=== PATIENT | female | born 1945 | race Caucasian/White ===

== ENCOUNTER 2017-06-25 13:20 | Emergency (ER) | payer MEDICARE, OTHER ==
[2017-06-25 13:35] VITALS: BP 133/58
--- NOTE | 2017-06-25 14:26 | UC ---
Hand/Wrist HPI - HPI Summary HPI Summary: complaint of middle right finger pain playing pool with her grandson and she jammed her finger 3 weeks ago was bruised and seemed to be getting better but it is still painful hurts to bend her finger not taking medication for pain - History Of Current Complaint Chief Complaint: UCUpperExtremity Stated Complaint: HAND PAIN Time Seen by Provider: 06/25/17 14:20 Hx Obtained From: Patient - Allergies/Home Medications Allergies/Adverse Reactions: Allergies Allergy/AdvReac Type Severity Reaction Status Date / Time Levofloxacin [From Levaquin] Allergy Rash Verified 06/25/17 13:35 Penicillins Allergy Rash Verified 06/25/17 13:35 Sulfa Antibiotics Allergy Rash And Verified 06/25/17 13:35 Itching PMH/Surg Hx/FS Hx/Imm Hx Previously Healthy: Yes Endocrine History: Diabetes, Dyslipidemia Cardiovascular History: Hypertension Respiratory History: Asthma - Surgical History Surgical History: Yes Surgery Procedure, Year, and Place: 12/2011 LT BIG TOE - [facility]; CARPAL TUNNEL SX BOTH WRIST, Right breast lumpectomy-2006. bunion 01/13/15 - Family History Known Family History: Positive: Hypertension, Diabetes Negative: Cardiac Disease - Social History Occupation: Retired Lives: With Family Alcohol Use: None Substance Use Type: None Smoking Status (MU): Never Smoked Tobacco Review of Systems Constitutional: Negative Skin: Negative Eyes: Negative ENT: Negative Respiratory: Negative Cardiovascular: Negative Gastrointestinal: Negative Genitourinary: Negative Motor: Negative Neurovascular: Negative Musculoskeletal: Other: - right middle finger pain Neurological: Negative Psychological: Negative All Other Systems Reviewed And Are Negative: Yes Physical Exam Triage Information Reviewed: Yes Appearance: No Pain Distress, Well-Nourished Vital Signs: Initial Vital Signs Temp 97.2 F 06/25/17 13:31 Pulse 72 06/25/17 13:31 Resp 18 06/25/17 13:31 BP 133/58 06/25/17 13:31 Pulse Ox 97 06/25/17 13:31 Vital Signs Reviewed: Yes Eyes: Positive: Conjunctiva Clear ENT: Positive: Pharynx normal, TMs normal Respiratory: Positive: Lungs clear, Normal breath sounds, No respiratory distress, No accessory muscle use Cardiovascular: Positive: RRR, No Murmur, Pulses Normal Musculoskeletal: Positive: Other: - RUE- tenderness in PIP joint- full ROM Neurological: Positive: Alert Psychological Exam: Normal Skin Exam: Normal Hand/Wrist Course/Dx - Differential Dx/Diagnosis Differential Diagnosis/HQI/PQRI: Contusion, Fracture, Sprain, Strain Provider Diagnoses: right middle finger contusion Discharge - Discharge Plan Condition: Stable Disposition: HOME Patient Education Materials: Dion Cole (ED) Referrals: María Shafer MD [Primary Care Provider] - Additional Instructions: Increase fluids and rest Take acetaminophen or ibuprofen for fever or pain Please review your discharge instructions. If your symptoms do not improve please call your primary care provider or return to urgent care.
--- NOTE | 2017-06-25 15:02 | RAD ---
INDICATION: Right third digit injury COMPARISON: None TECHNIQUE: AP, lateral, and oblique views were obtained. FINDINGS: There are no acute bony findings. 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 The soft tissues are intact. IMPRESSION: NO ACUTE BONY FINDINGS.
== END 2017-06-25 15:15 | disposition home or self-care (01) ==
LOC: UCEAST 13:20
DX: S60.031A Contusion of right middle finger without damage to nail, initial encounter (principal); X58.XXXA Exposure to other specified factors, initial encounter; E11.9 Type 2 diabetes mellitus without complications; E78.5 Hyperlipidemia, unspecified; I10 Essential (primary) hypertension; J45.909 Unspecified asthma, uncomplicated; Z88.3 Allergy status to other anti-infective agents; Z88.0 Allergy status to penicillin; Z88.2 Allergy status to sulfonamides
CPT/HCPCS: 73140; 99211; G0463

== ENCOUNTER 2018-04-06 15:46 | Emergency (ER) | payer MEDICARE, OTHER ==
[2018-04-06 17:18] LABS: ABS Basophils 0.1 10^3/ul (0-0.2); ABS Eosinophils 0.1 10^3/ul (0-0.6); ABS Lymphocytes 2.8 10^3/ul (1.0-4.8); ABS Neutrophils 9.9 10^3/ul (1.5-7.7); ABS Nucleated RBC 0 10^3/ul; Eosinophil % 1.1 % (0-6); Hematocrit 43 % (35-47); Hemoglobin 14.5 g/dl (12.0-16.0); Mean Corpuscular HGB Conc 34 g/dl (31-36); Mean Corpuscular Hemoglobin 32 pg (27-31); Mean Corpuscular Volume 94 fL (80-97); Nucleated Red Blood Cells % 0; Platelet Count 289 10^3/ul (150-450); Red Blood Count 4.54 10^6/ul (4.0-5.4); Red Cell Distribution Width 14 % (10.5-15); White Blood Count 13.9 10^3/ul (3.5-10.8)
[2018-04-06 17:24] LABS: INR 0.92 (0.77-1.02)
[2018-04-06 17:39] LABS: EGFR Non-African American 79.6 (>60)
[2018-04-06] MEDS ORDERED: Iodixanol* (CONTRAST) 320 MG/ML 100 ML SDV IV ONE (18:15)
--- NOTE | 2018-04-06 18:41 | RAD ---
HISTORY: Chest pain COMPARISONS: None TECHNIQUE: Multiple contiguous axial CT scans of the chest were obtained after the administration of nonionic intravenous contrast, timed to the pulmonary arterial phase of contrast enhancement.. Coronal and sagittal multiplanar reformations are also submitted for review. FINDINGS: NECK AND THYROID: The lower neck and thyroid are unremarkable. CHEST WALL: There is no lower cervical, axillary, or supraclavicular lymphadenopathy by size criteria. HEART AND PERICARDIUM: The heart is unremarkable. AORTA AND PULMONARY VASCULATURE: There is no pulmonary arterial filling defect to suggest pulmonary embolism. There is no linear filling defect within the aorta to suggest aortic dissection. MEDIASTINUM: There is no mediastinal lymphadenopathy by size criteria. DALIA: There is no hilar lymphadenopathy by size criteria. AIRWAY AND ESOPHAGUS: The airway is unremarkable, without endobronchial filling defect. The esophagus is grossly normal. LUNG PARENCHYMA: The lung volumes are low. The lung parenchyma is clear for the phase of respiration. PLEURA: No pleural abnormalities are noted. UPPER ABDOMEN: The upper abdomen is unremarkable. BONES AND SOFT TISSUES: Degenerative changes are noted OTHER: None. IMPRESSION: NO PULMONARY ARTERIAL FILLING DEFECT TO SUGGEST PULMONARY EMBOLISM.
--- NOTE | 2018-04-06 20:58 | ED ---
Tico Li Elizabeth, scribed for Sam Belle MD on 04/06/18 at 1645 . HPI Chest Pain - HPI Summary HPI Summary: This patient is a 73 year old F presenting to [facility] upon referral from a walk- in clinic with a chief complaint of sharp, intermittent chest pain since 6 days ago. The patient reports that the pain is located in her upper middle back. The patient notes that the pain has worsened today. The patient notes the pain is now chest heaviness. The patient rates the pain 0/10 in severity. Symptoms aggravated by nothing. Symptoms alleviated by lying down. Patient reports numbness in her pinkie finger, difficulty swallowing. Patient denies anterior chest pain and side pain. The patient has previously been diagnosed with a heart murmur. The patient reports taking 3 antacid pills earlier today. The patient is currently taking a low-dose antibiotic due to hx of UTIs. The patient reports using her inhaler this morning. - History of Current Complaint Chief Complaint: EDChestPainROMI Time Seen by Provider: 04/06/18 16:19 Hx Obtained From: Patient Onset/Duration: Started Days Ago - 7 days ago, Still Present Timing: Intermittent Initial Severity: Mild Current Severity: Mild Pain Intensity: 0 Pain Scale Used: 0-10 Numeric Chest Pain Location: Discrete at: - mid upper back Chest Pain Radiates To:: Back, Shoulder Character: Heaviness, Sharp/Stabbing Aggravating Factor(s): Nothing Alleviating Factor(s): Position - lying down Associated Signs and Symptoms: Positive: Numbness - in her pinkie, Back Pain - mid-upper back pain, Other: - difficulty swallowing. Negative: Chest Pain - negative anterior chest pain - Allergy/Home Medications Allergies/Adverse Reactions: Allergies Allergy/AdvReac Type Severity Reaction Status Date / Time levofloxacin [From Levaquin] Allergy Rash Verified 04/06/18 15:48 Penicillins Allergy Rash Verified 04/06/18 15:48 Sulfa (Sulfonamide Allergy Rash And Verified 04/06/18 15:48 Antibiotics) Itching PMH/Surg Hx/FS Hx/Imm Hx Endocrine/Hematology History: Reports: Hx Diabetes Denies: Hx Thyroid Disease Cardiovascular History: Reports: Hx Hypertension, Other Cardiovascular Problems/ Disorders - heart murmur Denies: Hx Pacemaker/ICD Respiratory History: Reports: Hx Asthma Denies: Hx Chronic Obstructive Pulmonary Disease (COPD) GI History: Denies: Hx Ulcer History: Denies: Hx Renal Disease Comment Only: Other Problems/Disorders - Frequent UTI since 2009 Musculoskeletal History: Denies: Hx Rheumatoid Arthritis, Hx Osteoporosis Sensory History: Denies: Hx Hearing Aid Psychiatric History: Denies: Hx Panic Disorder - Cancer History Cancer Type, Location and Year: BreastCancer 2007 Hx Chemotherapy: No Hx Radiation Therapy: Yes - Surgical History Surgery Procedure, Year, and Place: CARPAL TUNNEL SX BOTH WRIST, Right breast lumpectomy-2006. 2X LEFT/2X RIGHT FOOT SURGERY Infectious Disease History: No Infectious Disease History: Denies: Hx Clostridium Difficile, Hx Hepatitis, Hx Human Immunodeficiency Virus (HIV), Hx of Known/Suspected MRSA, Hx Shingles, Hx Tuberculosis, Traveled Outside the [place] in Last 30 Days - Family History Known Family History: Positive: Hypertension, Diabetes Negative: Cardiac Disease - Social History Alcohol Use: None Substance Use Type: Reports: None Hx Tobacco Use: No Smoking Status (MU): Never Smoked Tobacco Review of Systems Positive: Other - difficulty swallowing Positive: Chest Pain - positive mid-upper back pain, negative anterior sternal chest pain Negative: Abdominal Pain Positive: Numbness - in her pinkie All Other Systems Reviewed And Are Negative: Yes Physical Exam - Summary Physical Exam Summary: Appearance: The patient is well-nourished in no acute distress and in no acute pain. Skin: The skin is warm and dry and skin color reflects adequate perfusion. HEENT: The head is normocephalic and atraumatic. The pupils are equal and reactive. The conjunctivae are clear and without drainage. Nares are patent and without drainage. Mouth reveals moist mucous membranes and the throat is without erythema and exudate. The external ears are intact. The ear canals are patent and without drainage. The tympanic membranes are intact. Neck: the neck is supple with full range of motion and non-tender. There are no carotid bruits. There is no neck vein distension. Respiratory: Chest is non-tender. Lungs are clear to auscultation and breath sounds are symmetrical and equal. Cardiovascular: Heart is regular rate and rhythm. There is a systolic ejection murmur auscultated. There is no rub auscultated. There is no peripheral edema and pulses are symmetrical and equal. Abdomen: The abdomen is soft and non-tender. There are normal bowel sounds heard in all four quadrants and there is no organomegaly palpated. Musculoskeletal: There is no back tenderness noted. Extremities are non-tender with full range of motion. There is good capillary refill. There is no peripheral edema or calf tenderness elicited. Neurological: Patient is alert and oriented to person, place and time. The patient has symmetrical motor strength in all four extremities. Cranial nerves are grossly intact. Deep tendon reflexes are symmetrical and equal in all four extremities. Psychiatric: The patient has an appropriate affect and does not exhibit any anxiety or depression. Triage Information Reviewed: Yes Vital Signs On Initial Exam: Initial Vitals Temp Pulse Resp BP Pulse Ox 96.9 F 72 16 133/100 95 04/06/18 15:50 04/06/18 15:50 04/06/18 15:50 04/06/18 15:50 04/06/18 15:50 Vital Signs Reviewed: Yes Diagnostics - Vital Signs Vital Signs Temp Pulse Resp BP Pulse Ox 04/06/18 15:50 96.9 F 72 16 133/100 95 - Laboratory Lab Results: Lab Results 04/06/18 04/06/18 04/06/18 Range/Units 17:12 17:13 17:13 WBC 13.9 H (3.5-10.8) 10^3/ul RBC 4.54 (4.0-5.4) 10^6/ul Hgb 14.5 (12.0-16.0) g/dl Hct 43 (35-47) % MCV 94 (80-97) fL MCH 32 H (27-31) pg MCHC 34 (31-36) g/dl RDW 14 (10.5-15) % Plt Count 289 (150-450) 10^3/ul MPV 8.0 (7.4-10.4) um3 Neut % (Auto) 71.3 (38-83) % Lymph % (Auto) 20.0 L (25-47) % Ogle % (Auto) 7.0 (0-7) % Eos % (Auto) 1.1 (0-6) % Baso % (Auto) 0.6 (0-2) % Absolute Neuts (auto) 9.9 H (1.5-7.7) 10^3/ul Absolute Lymphs (auto) 2.8 (1.0-4.8) 10^3/ul Absolute Monos (auto) 1.0 H (0-0.8) 10^3/ul Absolute Eos (auto) 0.1 (0-0.6) 10^3/ul Absolute Basos (auto) 0.1 (0-0.2) 10^3/ul Absolute Nucleated RBC 0 10^3/ul Nucleated RBC % 0 INR (Anticoag Therapy) 0.92 (0.77-1.02) Sodium 137 L (139-145) mmol/L Potassium 4.3 (3.5-5.0) mmol/L Chloride 103 (101-111) mmol/L Carbon Dioxide 26 (22-32) mmol/L Anion Gap 8 (2-11) mmol/L BUN 16 (6-24) mg/dL Creatinine 0.72 (0.51-0.95) mg/dL Est GFR ( Amer) 102.4 (>60) Est GFR (Non-Af Amer) 79.6 (>60) BUN/Creatinine Ratio 22.2 H (8-20) Glucose 104 H (70-100) mg/dL Lactic Acid (0.5-2.0) mmol/L Calcium 9.6 (8.6-10.3) mg/dL Total Bilirubin 0.40 (0.2-1.0) mg/dL AST 20 (13-39) U/L ALT 27 (7-52) U/L Alkaline Phosphatase 52 (34-104) U/L Troponin I 0.00 (<0.04) ng/mL Total Protein 6.6 (6.4-8.9) g/dL Albumin 4.1 (3.2-5.2) g/dL Globulin 2.5 (2-4) g/dL Albumin/Globulin Ratio 1.6 (1-3) 04/06/18 04/06/18 Range/Units 17:13 19:24 WBC (3.5-10.8) 10^3/ul RBC (4.0-5.4) 10^6/ul Hgb (12.0-16.0) g/dl Hct (35-47) % MCV (80-97) fL MCH (27-31) pg MCHC (31-36) g/dl RDW (10.5-15) % Plt Count (150-450) 10^3/ul MPV (7.4-10.4) um3 Neut % (Auto) (38-83) % Lymph % (Auto) (25-47) % Ogle % (Auto) (0-7) % Eos % (Auto) (0-6) % Baso % (Auto) (0-2) % Absolute Neuts (auto) (1.5-7.7) 10^3/ul Absolute Lymphs (auto) (1.0-4.8) 10^3/ul Absolute Monos (auto) (0-0.8) 10^3/ul Absolute Eos (auto) (0-0.6) 10^3/ul Absolute Basos (auto) (0-0.2) 10^3/ul Absolute Nucleated RBC 10^3/ul Nucleated RBC % INR (Anticoag Therapy) (0.77-1.02) Sodium (139-145) mmol/L Potassium (3.5-5.0) mmol/L Chloride (101-111) mmol/L Carbon Dioxide (22-32) mmol/L Anion Gap (2-11) mmol/L BUN (6-24) mg/dL Creatinine (0.51-0.95) mg/dL Est GFR ( Amer) (>60) Est GFR (Non-Af Amer) (>60) BUN/Creatinine Ratio (8-20) Glucose (70-100) mg/dL Lactic Acid 0.8 (0.5-2.0) mmol/L Calcium (8.6-10.3) mg/dL Total Bilirubin (0.2-1.0) mg/dL AST (13-39) U/L ALT (7-52) U/L Alkaline Phosphatase (34-104) U/L Troponin I 0.00 (<0.04) ng/mL Total Protein (6.4-8.9) g/dL Albumin (3.2-5.2) g/dL Globulin (2-4) g/dL Albumin/Globulin Ratio (1-3) Result Diagrams: 04/06/18 17:13 04/06/18 17:13 Lab Statement: Any lab studies that have been ordered have been reviewed, and results considered in the medical decision making process. - CT Chest/Thorax CTA CT Interpretation: No Acute Changes - IMPRESSION: NO PULMONARY ARTERIAL FILLING DEFECT TO SUGGEST PULMONARY EMBOLISM. Dr. Belle has reviewed this report. CT Interpretation Completed By: Radiologist - EKG 15:50 Cardiac Rate: Bradycardia - at 57 BPM EKG Rhythm: Sinus Bradycardia EKG Interpretation: Sinus bradycardia, left axis deviation Chest Pain Course/Dx - Course Course Of Treatment: Ms. Lopez came in with an atypical back pain/ chest pain. She had two troponins that were negative. She had a CTA which showed no PE or dissection/aneurysm. My sense is that this is a radicular pain. - Diagnoses Provider Diagnoses: Chest pain Discharge - Sign-Out/Discharge Documenting (check all that apply): Discharge/Admit/Transfer - Discharge Plan Condition: Stable Disposition: HOME Patient Education Materials: Chest Pain (ED) Referrals: María Shafer MD [Primary Care Provider] - 2 Days Additional Instructions: Follow up with primary care physician in 2 days. Return to the emergency department with any new or worsening symptoms. - Billing Disposition and Condition Condition: STABLE Disposition: HOME The documentation as recorded by the Tico moran Elizabeth accurately reflects the service I personally performed and the decisions made by me, Sam Belle MD.
[2018-04-06 21:05] VITALS: BP 131/77
== END 2018-04-06 21:06 | disposition home or self-care (01) ==
LOC: ED 15:46
DX: R07.89 Other chest pain (principal); Z88.3 Allergy status to other anti-infective agents; Z88.0 Allergy status to penicillin; Z88.2 Allergy status to sulfonamides
CPT/HCPCS: 36415; 71275; 80053; 83605; 84484; 85025; 85610; 93005; 99283; Q9967

== ENCOUNTER 2022-11-01 11:10 | Observation (INO) ==
[2022-11-01 11:40] LABS: ABS Eosinophils 0.2 10^3/ul (0-0.6); ABS Lymphocytes 2.3 10^3/ul (1.0-4.8); ABS Monocytes 1.1 10^3/ul (0-0.8); ABS Neutrophils 12.7 10^3/ul (1.5-7.7); Hematocrit 42 % (35-47); Hemoglobin 14.1 g/dL (12.0-16.0); Lymphocyte % 13.9 %; Mean Corpuscular HGB Conc 33 g/dL (31-36); Mean Corpuscular Hemoglobin 31 pg (27-31); Mean Corpuscular Volume 92 fL (80-97); Platelet Count 289 10^3/uL (150-450); Red Blood Count 4.61 10^6 /uL (3.70-4.87); Red Cell Distribution Width 13 % (10-15); White Blood Count 16.2 10^3/uL (3.5-10.8)
[2022-11-01 12:32] LABS: INR 1.07 (0.88-1.18)
[2022-11-01 12:40] LABS: Albumin 4.5 g/dL (3.2-5.2); Calcium 9.3 mg/dL (8.6-10.3); Globulin 2.2 g/dL (2-4); Potassium 3.8 mmol/L (3.5-5.0); Total Bilirubin 0.7 mg/dL (0.2-1.0); Total Protein 6.7 g/dL (6.4-8.9); eGFR CKD-EPI 89.6 (>60)
[2022-11-01] MEDS ORDERED: Iodixanol (CONTRAST) 320 MG/ML 100 ML SDV IV ONE (12:53)
[2022-11-01 13:02] LABS: High Sensitivity Troponin 1 Hr 23 pg/mL (<15)
[2022-11-01] MEDS ORDERED: Nitroglycerin 0.2 mg/hr PATCH (5 mg) TRANSDERM ONE (14:18)
[2022-11-01] MEDS: Heparin 5000 UNITS/ML 1 mL VIAL IV SCH (14:39)
[2022-11-01] MEDS: Heparin DRIP 25,000 UNITS BAG 25,000 UNITS/500 ML BAG IV SCH ×2 (14:41→14:52)
[2022-11-01 15:27] LABS: ABS Basophils 0.1 10^3/ul (0-0.2); ABS Eosinophils 0.3 10^3/ul (0-0.6); ABS Lymphocytes 2.7 10^3/ul (1.0-4.8); ABS Monocytes 1.1 10^3/ul (0-0.8); ABS Neutrophils 11.4 10^3/ul (1.5-7.7); Eosinophil % 1.6 %; Hematocrit 40 % (35-47); Hemoglobin 13.2 g/dL (12.0-16.0); Lymphocyte % 17.7 %; Mean Corpuscular HGB Conc 33 g/dL (31-36); Mean Corpuscular Hemoglobin 31 pg (27-31); Mean Corpuscular Volume 93 fL (80-97); Mean Platelet Volume 7.8 fL (7.4-10.4); Platelet Count 285 10^3/uL (150-450); Red Blood Count 4.31 10^6 /uL (3.70-4.87); Red Cell Distribution Width 13 % (10-15); White Blood Count 15.5 10^3/uL (3.5-10.8)
[2022-11-01 16:45] LABS: Blood Urea Nitrogen 15 mg/dL (6-24); eGFR CKD-EPI 91.5 (>60)
[2022-11-01 17:26] LABS: C Reactive Protein < 1.00 mg/L (<8.01)
[2022-11-01] MEDS ORDERED: Dextrose 50% Syringe 50 ml 25 GM/50 ML SYRINGE IV PUSH PRN (18:33)
[2022-11-01 18:58] LABS: Cholesterol 140 mg/dL; LDL Cholesterol 73 mg/dL; Triglycerides 97 mg/dL
[2022-11-01] MEDS: CMCS: Solifenacin 5 mg TAB (NF) PO SCH (20:11)
[2022-11-02] MEDS: Heparin 5000 UNITS/ML 1 mL VIAL IV SCH (01:49)
[2022-11-02] MEDS: NF: Vibegron 75 MG TAB (NF) PO SCH (08:16)
[2022-11-02] MEDS: CMCS: Solifenacin 5 mg TAB (NF) PO SCH (08:18)
[2022-11-02] MEDS ORDERED: Acetaminophen IV 1 GM/100ML 1,000 MG/100 ML BAG IV PRN (08:27)
[2022-11-02 08:53] LABS: ABS Basophils 0.1 10^3/ul (0-0.2); ABS Eosinophils 0.2 10^3/ul (0-0.6); ABS Lymphocytes 2.3 10^3/ul (1.0-4.8); ABS Monocytes 0.9 10^3/ul (0-0.8); ABS Neutrophils 8.2 10^3/ul (1.5-7.7); Eosinophil % 1.4 %; Hematocrit 38 % (35-47); Hemoglobin 12.7 g/dL (12.0-16.0); Lymphocyte % 20.1 %; Mean Corpuscular HGB Conc 33 g/dL (31-36); Mean Corpuscular Hemoglobin 30 pg (27-31); Mean Corpuscular Volume 92 fL (80-97); Mean Platelet Volume 8.4 fL (7.4-10.4); Nucleated Red Blood Cells % 0.1; Platelet Count 269 10^3/uL (150-450); Red Blood Count 4.17 10^6 /uL (3.70-4.87); Red Cell Distribution Width 14 % (10-15); White Blood Count 11.6 10^3/uL (3.5-10.8)
[2022-11-02 08:58] LABS: INR 1.1 (0.88-1.18)
[2022-11-02] MEDS ORDERED: Sulfur Hexaflouride MICROSPHR 25 MG VIAL ONE (09:01)
[2022-11-02 09:03] LABS: Calcium 8.9 mg/dL (8.6-10.3); Total Bilirubin 0.8 mg/dL (0.2-1.0); eGFR CKD-EPI 89.6 (>60)
[2022-11-02 10:42] LABS: High Sensitivity Troponin 1 Hr 3 pg/mL (<15)
[2022-11-02 12:45] LABS: High Sensitivity Troponin 3 Hr 3 pg/mL (<15)
[2022-11-03] MEDS: NF: Vibegron 75 MG TAB (NF) PO SCH (08:15)
[2022-11-03] MEDS: CMCS: Solifenacin 5 mg TAB (NF) PO SCH (08:16)
[2022-11-03 08:45] LABS: ABS Eosinophils 0.1 10^3/ul (0-0.6); ABS Lymphocytes 2.6 10^3/ul (1.0-4.8); ABS Monocytes 0.8 10^3/ul (0-0.8); ABS Neutrophils 6.7 10^3/ul (1.5-7.7); Eosinophil % 1.1 %; Hematocrit 38 % (35-47); Hemoglobin 13.4 g/dL (12.0-16.0); Lymphocyte % 25.2 %; Mean Corpuscular HGB Conc 35 g/dL (31-36); Mean Corpuscular Hemoglobin 32 pg (27-31); Mean Corpuscular Volume 91 fL (80-97); Mean Platelet Volume 7.8 fL (7.4-10.4); Platelet Count 273 10^3/uL (150-450); Red Blood Count 4.23 10^6 /uL (3.70-4.87); Red Cell Distribution Width 13 % (10-15); White Blood Count 10.3 10^3/uL (3.5-10.8)
[2022-11-03] MEDS ORDERED: Enoxaparin 40 MG/0.4 ML SYR SUBCUT SCH (09:00)
[2022-11-03 09:05] LABS: Calcium 9.2 mg/dL (8.6-10.3); Potassium 4.3 mmol/L (3.5-5.0); eGFR CKD-EPI 89.9 (>60)
[2022-11-03 11:38] VITALS: BP 125/49
== END 2022-11-03 12:43 | disposition home or self-care (01) ==
LOC: EDHOLD 11:10 → ED 11:10 → SUATTDRO 16:58 → MEDTELE 21:31
PROVIDERS: ADMIT Hospitalist; ATTEND Internal Medicine